=== PATIENT | male | born 1980 | race African-American/Black ===

== ENCOUNTER 2022-08-12 13:40 | Emergency (ER) | payer BC ==
[~2022-08-12] VITALS: Ht 193 cm; Wt 90.7 kg
[2022-08-12] MEDS ORDERED: INTESTINEX680 M1 PO (15:46)
[2022-08-12] MEDS ORDERED: AMOX-CLAV 875-1 EAC1 PO (15:46)
[2022-08-12] MEDS ORDERED: MUPIROCIN22 GM TOP (15:46)
[2022-08-12] MEDS ORDERED: DICLOFENAC POTA50 MG PO (15:46)
== END 2022-08-12 15:51 ==
LOC: ER 13:40
DX: S51.812A Laceration without foreign body of left forearm, initial encounter (principal); W18.39XA Other fall on same level, initial encounter; Y93.89 Activity, other specified; Y92.89 Other specified places as the place of occurrence of the external cause; Y99.9 Unspecified external cause status